=== PATIENT | male | born 1995 | race Caucasian/White ===

== ENCOUNTER 2017-07-02 10:30 | Emergency (ER) | payer OTHER ==
[~2017-07-02] VITALS: Ht 162.6 cm; Wt 65.0 kg
[2017-07-02 10:32] VITALS: BP 138/86; PULSE 90; RESP 12; TEMP 98; O2SAT 99
--- NOTE | 2017-07-02 11:52 | PD ---
HPI . Dog bite Chief Complaint: Bite or Sting Time Seen by Provider: 11:10 Travel History International Travel<30 days: No Contact w/Intl Traveler<30days: No Traveled to known affect area: No History of Present Illness HPI This patient presents with a dog bite to his right arm. Onset was shortly prior to arrival. It was a known dog whose shots are up-to-date. The patient' s shots are up-to-date. The associated pain is very mild rated 3/10. No modifying factors. The patient thoroughly clean the wounds prior to presentation. [facility] Past Medical History Medical History: Denies Significant Hx Influenza Vaccination: No Past Surgical History Surgical History: No Previous Surgery Social History Alcohol Use: No Tobacco Use: No Substance Use: No Allergies-Medications (Allergen,Severity, Reaction): Coded Allergies: No Known Allergies (Unverified , 07/02/17) Reported Meds & Prescriptions Reported Meds & Active Scripts Active No Active Prescriptions or Reported Medications Review of Systems Except as stated in HPI: all other systems reviewed are Neg Skin: Positive Other (animal bite) Physical Exam Narrative GENERAL: Awake and alert and in no acute distress. SKIN: Warm and dry. He has some very superficial wounds around his elbow and his right index finger. None of the wounds appear to penetrate into the dermis. He has not yet developed any bruising associated with the bite. HEAD: Normocephalic/atraumatic. EYES: Pupils are equal. Extraocular movements are intact. NECK: Normal range of motion. CARDIOVASCULAR: Regular rate and rhythm. RESPIRATORY: Nonlabored respirations. MUSCULOSKELETAL: Atraumatic. NEUROLOGICAL: Nonfocal. PSYCHIATRIC: Appropriate mood and affect. Data Data Last Documented VS Vital Signs Date Time Temp Pulse Resp B/P (MAP) Pulse Ox O2 Delivery O2 Flow Rate FiO2 07/02/17 10:41 17 07/02/17 10:32 98.0 90 138/86 (103) 99 Orders Orders Ed Discharge Order (07/02/17 11:31) [facility] Medical Decision Making Medical Screen Exam Complete: Yes Emergency Medical Condition: Yes Differential Diagnosis Differential diagnosis of animal bite includes but is not limited to wound, wound infection, retained foreign body, open fracture, sepsis, rabies. Narrative Course This patient presents with a dog bite to the right elbow and the right index finger. His wounds are very superficial and do not require antibiotic prophylaxis. His tetanus is up-to-date. The dogs rabies is up-to-date. No further treatment is needed here today. I have given him strict discharge instructions to return if he develops any signs or symptoms worrisome for infection. Diagnosis Primary Impression: Dog bite Qualified Codes: W54.0XXA - Bitten by dog, initial encounter Patient Instructions: General Instructions, Animal Bite (ED) Departure Forms: Tests/Procedures Additional Instructions: Local wound care twice a day (soap and water followed by antibiotic ointment). This should do well. Follow up for any signs of infection such as pus, redness/ warmth, fever, increased pain. Scripts No Active Prescriptions or Reported Meds Disposition: DISCHARGE HOME Condition: Stable Genesis Stallworth MD Jul 02, 2017 11:51
== END 2017-07-02 11:59 | disposition home or self-care (01) ==
LOC: NEPD 10:30
DX: S51.051A Open bite, right elbow, initial encounter (principal); S61.250A Open bite of right index finger without damage to nail, initial encounter; W54.0XXA Bitten by dog, initial encounter
CPT/HCPCS: 99282